=== PATIENT | male | born 2000 | race Caucasian/White ===

== ENCOUNTER 2023-08-29 07:17 | Emergency (ER) | payer OTHER ==
[~2023-08-29] VITALS: Ht 182.9 cm; Wt 102.3 kg
[2023-08-29 07:25] VITALS: TEMP 98.3
[2023-08-29 07:57] LABS: STREP SCREEN NEGATIVE
[2023-08-29 10:07] VITALS: BP 118/70; PULSE 83
== END 2023-08-29 10:07 | disposition home or self-care (01) ==
LOC: COL.ER 07:17
PROVIDERS: Emergency Medicine
DX: J02.9 Acute pharyngitis, unspecified (principal); F17.210 Nicotine dependence, cigarettes, uncomplicated
CPT/HCPCS: J8540